=== PATIENT | male | born 1955 | race Caucasian/White ===

== ENCOUNTER 2022-03-20 06:06 | Inpatient (IN) ==
[~2022-03-20 06:06] MED LIST: Aspirin 81 MG TAB.CHEW PO ONE
[2022-03-20] MEDS ORDERED: NiCARdipine 2.5 MG/10 ML Syringe IVPB ONE (06:07)
[2022-03-20] MEDS ORDERED: DOBUTamine 1,000 MG/250 ML BAG ONE (06:07)
[2022-03-20] MEDS ORDERED: CARDIOPLEGIC SOLUTION NO.1 1,000 ML ONE (06:09)
[2022-03-20] MEDS ORDERED: *HR* Propofol 200 MG/20 ML VIAL IVP ONE (06:13)
[2022-03-20] MEDS ORDERED: *HR* Midazolam HCl 5 MG/5 ML VIAL IVP ONE (06:13)
[2022-03-20] MEDS ORDERED: *HR* FentaNYL (PF) 1,000 MCG/20 ML VIAL ONE (06:13)
[2022-03-20] MEDS ORDERED: CeFAZolin Syr 2,000MG/20 ML 2,000 MG/20 ML SYRINGE IVPB ONE (06:15)
[2022-03-20] MEDS ORDERED: *HR* Rocuronium Bromide 50 MG/5 ML VIAL ONE ×3 (06:15→11:51)
[2022-03-20] MEDS ORDERED: *HR* Magnesium Sulfate 1 GM/2 ML VIAL ONE (06:17)
[2022-03-20] MEDS ORDERED: Tranexamic Acid 1,000 MG/10 ML VIAL ONE (06:17)
[2022-03-20] MEDS ORDERED: Lidocaine 2% Syringe 100 MG/5 ML ONE (06:22)
[2022-03-20] MEDS ORDERED: Famotidine 20 MG/2 ML VIAL ONE (06:25)
[2022-03-20] MEDS: Ringers Solution, Lactated 1,000 ML IVC SCH (06:38)
[2022-03-20] MEDS: Chlorhexidine Rinse 15 ML MOUTHWASH MM SCH ×3 (06:38→19:53)
[2022-03-20] MEDS ORDERED: Papaverine 60 MG/2 ML VIAL IVP ONE (06:42)
[2022-03-20] MEDS ORDERED: Vancomycin 1,500 MG/265 ML IV.SOLN IVPB ONE (07:00)
[2022-03-20 07:45] LABS: ABG Base Excess -2 mEq/L (-2 to 3); ABG Chloride 103 mEq/L (98-107); ABG Glucose 234 mg/dL (60-95); ABG HCO3 25 mEq/L (21-27); ABG Ionized Calcium 1.24 mmol/L (1.15-1.35); ABG Oxygen Saturation 99 % (95-98); ABG PCO2 51 mmHg (35-45); ABG PO2 163 mmHg (85-104); ABG TCO2 26 mEq/L (20-26)
[2022-03-20] MEDS ORDERED: niCARdipine 20 MG/200 ML MLS IVC ONE (08:29)
[2022-03-20] MEDS ORDERED: Acetaminophen 325 MG TABLET PO PRN (08:48)
[2022-03-20] MEDS ORDERED: *HR* Dextrose 50 % in Water (Syg) 50 ML SYRINGE IVP PRN (08:48)
[2022-03-20] MEDS ORDERED: Potassium Chloride 40 MEQ/200 ML BAG IVPB PRN (08:48)
[2022-03-20] MEDS ORDERED: Insulin Regular, Human 100 UNIT/ML IV PRN (08:48)
[2022-03-20] MEDS ORDERED: Naloxone 0.4 MG/ML INJ IVP PRN (08:48)
[2022-03-20] MEDS ORDERED: *HR* FentaNYL (PF) 100 MCG/2 ML VIAL IVP PRN (08:48)
[2022-03-20] MEDS ORDERED: Calcium Gluconate 1gm/50mL 1 GM/50 ML BAG IVPB PRN (08:48)
[2022-03-20] MEDS ORDERED: Heparin 15,000 UNIT in 0.9 % Sodium Chloride 500 ML IV ONE (09:30)
[2022-03-20] MEDS ORDERED: Norepinephrine 4 MG in 0.9 % Sodium Chloride 250 ML IVC PRN (09:30)
[2022-03-20] MEDS ORDERED: Buckersberg's Blood Cardioplegia PF ONE (09:30)
[2022-03-20] MEDS ORDERED: del Nido Cardioplegia Solution PF ONE ×2 (09:30)
[2022-03-20 09:34] LABS: ABG Base Excess -2 mEq/L (-2 to 3); ABG Chloride 106 mEq/L (98-107); ABG Glucose 196 mg/dL (60-95); ABG HCO3 23 mEq/L (21-27); ABG Ionized Calcium 1.18 mmol/L (1.15-1.35); ABG Oxygen Saturation 100 % (95-98); ABG PCO2 40 mmHg (35-45); ABG PH 7.37 pH Units (7.32-7.45); ABG PO2 254 mmHg (85-104); ABG TCO2 24 mEq/L (20-26)
[2022-03-20] MEDS ORDERED: *HR* FentaNYL (PF) 250 MCG/5 ML VIAL ONE (09:51)
[2022-03-20 11:45] LABS: ABG Base Excess -5 mEq/L (-2 to 3); ABG Chloride 105 mEq/L (98-107); ABG Glucose 191 mg/dL (60-95); ABG HCO3 19 mEq/L (21-27); ABG Ionized Calcium 1.01 mmol/L (1.15-1.35); ABG Oxygen Saturation 100 % (95-98); ABG PCO2 31 mmHg (35-45); ABG PH 7.41 pH Units (7.32-7.45); ABG PO2 508 mmHg (85-104); ABG TCO2 20 mEq/L (20-26)
[2022-03-20] MEDS ORDERED: Protamine Sulfate 250 MG/25 ML VIAL IVP ONE (11:49)
[2022-03-20] MEDS ORDERED: Calcium Gluconate 1,000 MG/10 ML VIAL ONE ×3 (11:49→12:48)
[2022-03-20] MEDS ORDERED: Protamine Sulfate 50 MG/5 ML VIAL IVP ONE (11:49)
[2022-03-20] MEDS ORDERED: ceFAZolin 1,000 MG in 0.9 % Sodium Chloride 10 ML IVP ONE (12:13)
[2022-03-20] MEDS ORDERED: Furosemide 40 MG/4 ML VIAL ONE (12:13)
[2022-03-20 12:19] LABS: ABG Base Excess -5 mEq/L (-2 to 3); ABG Chloride 105 mEq/L (98-107); ABG Glucose 206 mg/dL (60-95); ABG HCO3 19 mEq/L (21-27); ABG Ionized Calcium 1.01 mmol/L (1.15-1.35); ABG Oxygen Saturation 100 % (95-98); ABG PCO2 30 mmHg (35-45); ABG PH 7.41 pH Units (7.32-7.45); ABG PO2 481 mmHg (85-104); ABG TCO2 20 mEq/L (20-26)
[2022-03-20 12:50] LABS: ABG Base Excess -6 mEq/L (-2 to 3); ABG Chloride 107 mEq/L (98-107); ABG Glucose 214 mg/dL (60-95); ABG HCO3 19 mEq/L (21-27); ABG Ionized Calcium 0.93 mmol/L (1.15-1.35); ABG Oxygen Saturation 100 % (95-98); ABG PCO2 35 mmHg (35-45); ABG PH 7.35 pH Units (7.32-7.45); ABG PO2 360 mmHg (85-104); ABG TCO2 20 mEq/L (20-26)
[2022-03-20] MEDS: niCARdipine 20 MG/200 ML MLS IVC SCH ×5 (13:36→22:12)
[2022-03-20] MEDS: DOBUTamine 1,000 MG/250 ML BAG IVC SCH (13:37)
[2022-03-20] MEDS: Norepinephrine 4 MG/254 ML IV.SOLN IVC SCH ×2 (13:37→16:20)
[2022-03-20 14:02] LABS: ABG Base Excess -2 mEq/L (-2 to 3); ABG HCO3 22 mEq/L (21-27); ABG Oxygen Saturation 96 % (95-98); ABG PCO2 33 mmHg (35-45); ABG PH 7.43 pH Units (7.32-7.45); ABG PO2 76 mmHg (85-104); ABG TCO2 23 mEq/L (20-26); Blood Gas VT 500 cc
[2022-03-20 14:10] LABS: Basophils % 0.2 %; Eosinophils % 0.1 %; Hematocrit 29.4 % (37.5-50.1); Hemoglobin 10.2 g/dL (12.9-16.9); Immature Granulocytes % 0.8 % (0-4); Lymphocytes # 0.7 K/mcL (0.6-4.6); Mean Corpuscular HGB Conc 34.7 g/dL (31.6-35.5); Mean Corpuscular Hemoglobin 30.5 pg (28.0-33.3); Mean Platelet Volume 10.4 fL (9.4-12.4); Monocytes # 0.8 K/mcL (0.0-1.3); Monocytes % 4.7 %; Neutrophils # 16.1 K/mcL (1.6-8.9); Platelet Count 153 K/mcL (140-400); Red Blood Count 3.34 M/mcL (4.19-5.50); Red Cell Distribution Width 11.9 % (11.5-14.5); Segmented Neutrophils % 90.2 %; White Blood Count 17.8 K/mcL (4.3-11.1)
[2022-03-20] MEDS: *HR* OxyCODONE/APAP 5/325 TABLET PO PRN (14:12)
[2022-03-20 14:23] LABS: Activated Partial Thrombo Time 35.1 Seconds (26.0-36.0); INR 1.3
[2022-03-20 14:28] LABS: BUN/Creatinine Ratio 14 (6-26); Blood Urea Nitrogen 15 mg/dL (8-23); Calcium 8.1 mg/dL (8.6-10.3); Carbon Dioxide 23 mEq/L (23-29); Chloride 106 mEq/L (98-107); Glucose 181 mg/dL (70-105); Magnesium 2.6 mg/dL (1.6-2.6); Osmolality,Calculated 291 (280-300); Potassium 3.8 mEq/L (3.5-5.1); Prothrombin Time 14.4 Seconds (9.4-12.1); Sodium 138 mEq/L (136-145); eGFR For African Americans > 60 (> 60); eGFR For Non-African Americans > 60 (> 60)
[2022-03-20] MEDS: Dexmedetomidine HCl 400 MCG/100 ML MLS IVC SCH (15:15)
[2022-03-20] MEDS: Pantoprazole 40 MG VIAL IVP SCH (15:38)
[2022-03-20] MEDS: Albumin Human 5% 12.5 GM/250 ML IV.SOLN IVPB PRN ×2 (16:12→16:29)
[2022-03-20] MEDS: CeFAZolin 2 GM/120 ML BAG IVPB SCH (16:26)
[2022-03-20] MEDS: Nitroprusside 0.9% NaCl 20 MG/100 ML VIAL IVC SCH (16:27)
[2022-03-20] MEDS ORDERED: *HR* Heparin 10,000 UNIT/10 ML VIAL IR ONE (16:58)
[2022-03-20] MEDS ORDERED: Albumin Human 25% 25 GM/100 ML IV.SOLN IVPB ONE (16:58)
[2022-03-20] MEDS ORDERED: Sodium Bicarbonate 50 MEQ/50 ML VIAL IVC ONE (16:58)
[2022-03-20] MEDS ORDERED: Lidocaine 2% Syringe 100 MG/5 ML IVP ONE (16:58)
[2022-03-20] MEDS ORDERED: Tranexamic Acid 1,000 MG/10 ML VIAL IR ONE (16:58)
[2022-03-20] MEDS ORDERED: Mannitol 25% vial 12.5 GM/50 ML VIAL IVPB ONE (16:58)
[2022-03-20] MEDS ORDERED: *HR* Phenylephrine 10 MG/ML VIAL IVC ONE (16:58)
[2022-03-20] MEDS ORDERED: *HR* Magnesium Sulfate 2 GM/50 ML PIGGYBACK IVPB ONE (16:58)
[2022-03-20] MEDS ORDERED: Aspirin 81 MG TAB.CHEW PO ONE (18:00)
[2022-03-20] MEDS ORDERED: Amiodarone Premix 150 MG/100 ML BAG IVPB ONE (19:12)
[2022-03-20] MEDS ORDERED: Amiodarone Premix 360 MG/200 ML BAG IVC ONE (19:12)
[2022-03-20 19:48] LABS: ABG Base Excess -3 mEq/L (-2 to 3); ABG HCO3 21 mEq/L (21-27); ABG Oxygen Saturation 91 % (95-98); ABG PCO2 36 mmHg (35-45); ABG PH 7.39 pH Units (7.32-7.45); ABG PO2 62 mmHg (85-104); ABG TCO2 22 mEq/L (20-26)
[2022-03-20] MEDS: *HR* FentaNYL (PF) 100 MCG/2 ML VIAL IVP PRN (23:00)
[2022-03-21] MEDS: CeFAZolin 2 GM/120 ML BAG IVPB SCH ×4 (00:15→23:48)
[2022-03-21] MEDS: niCARdipine 20 MG/200 ML MLS IVC SCH ×6 (00:35→23:51)
[2022-03-21] MEDS: *HR* OxyCODONE/APAP 5/325 TABLET PO PRN ×4 (02:05→22:25)
[2022-03-21] MEDS: Amiodarone Premix 360 MG/200 ML BAG IVC SCH ×2 (02:13→14:00)
[2022-03-21 03:45] LABS: Basophils % 0.1 %; Hematocrit 30.6 % (37.5-50.1); Hemoglobin 10.6 g/dL (12.9-16.9); Immature Granulocytes % 0.8 % (0-4); Lymphocytes # 0.6 K/mcL (0.6-4.6); Lymphocytes % 3.3 %; Mean Corpuscular HGB Conc 34.6 g/dL (31.6-35.5); Mean Corpuscular Hemoglobin 30.2 pg (28.0-33.3); Mean Corpuscular Volume 87.2 fL (83.0-100.0); Mean Platelet Volume 10.7 fL (9.4-12.4); Monocytes # 1.3 K/mcL (0.0-1.3); Monocytes % 7.9 %; Neutrophils # 14.6 K/mcL (1.6-8.9); Platelet Count 180 K/mcL (140-400); Red Blood Count 3.51 M/mcL (4.19-5.50); Red Cell Distribution Width 12.2 % (11.5-14.5); Segmented Neutrophils % 87.9 %; White Blood Count 16.6 K/mcL (4.3-11.1)
[2022-03-21 03:57] LABS: INR 1.1; Prothrombin Time 12.7 Seconds (9.4-12.1)
[2022-03-21 03:59] LABS: Activated Partial Thrombo Time 26.7 Seconds (26.0-36.0)
[2022-03-21 04:08] LABS: BUN/Creatinine Ratio 17 (6-26); Blood Urea Nitrogen 18 mg/dL (8-23); Carbon Dioxide 22 mEq/L (23-29); Chloride 106 mEq/L (98-107); Glucose 155 mg/dL (70-105); Magnesium 1.8 mg/dL (1.6-2.6); Osmolality,Calculated 289 (280-300); Potassium 3.5 mEq/L (3.5-5.1); Sodium 137 mEq/L (136-145); eGFR For African Americans > 60 (> 60); eGFR For Non-African Americans > 60 (> 60)
[2022-03-21] MEDS: *HR* FentaNYL (PF) 100 MCG/2 ML VIAL IVP PRN (04:44)
[2022-03-21] MEDS: Ringers Solution, Lactated 1,000 ML IVC SCH (06:39)
[2022-03-21] MEDS: *HR* Enoxaparin 40 MG/0.4 ML SYRINGE SQ SCH (06:39)
[2022-03-21] MEDS: DOBUTamine 1,000 MG/250 ML BAG IVC SCH (07:37)
[2022-03-21] MEDS: Chlorhexidine Rinse 15 ML MOUTHWASH MM SCH ×3 (07:37→20:17)
[2022-03-21] MEDS: Aspirin Enteric Coated 81 MG Tablet PO SCH (07:57)
[2022-03-21] MEDS: Bumetanide 1 MG/4 ML VIAL IVP SCH ×2 (08:00→16:29)
[2022-03-21] MEDS: Ketorolac 30 MG/ML VIAL IVP SCH ×3 (08:00→23:48)
[2022-03-21] MEDS: Pantoprazole 40 MG VIAL IVP SCH (08:01)
[2022-03-21 08:26] LABS: ABG Base Excess -3 mEq/L (-2 to 3); ABG Chloride 103 mEq/L (98-107); ABG Glucose 163 mg/dL (60-95); ABG HCO3 23 mEq/L (21-27); ABG Ionized Calcium 1.14 mmol/L (1.15-1.35); ABG PCO2 45 mmHg (35-45); ABG PH 7.33 pH Units (7.32-7.45); ABG PO2 > 630 mmHg (85-104); ABG TCO2 25 mEq/L (20-26)
[2022-03-21 08:29] LABS: ABG Base Excess -3 mEq/L (-2 to 3); ABG Chloride 103 mEq/L (98-107); ABG Glucose 172 mg/dL (60-95); ABG HCO3 24 mEq/L (21-27); ABG Ionized Calcium 1.17 mmol/L (1.15-1.35); ABG PCO2 49 mmHg (35-45); ABG PH 7.29 pH Units (7.32-7.45); ABG PO2 > 630 mmHg (85-104); ABG TCO2 25 mEq/L (20-26)
[2022-03-21 08:30] LABS: ABG Base Excess -3 mEq/L (-2 to 3); ABG Chloride 104 mEq/L (98-107); ABG Glucose 176 mg/dL (60-95); ABG HCO3 22 mEq/L (21-27); ABG Ionized Calcium 1.08 mmol/L (1.15-1.35); ABG PCO2 39 mmHg (35-45); ABG PH 7.36 pH Units (7.32-7.45); ABG PO2 > 630 mmHg (85-104); ABG TCO2 24 mEq/L (20-26)
[2022-03-21] MEDS: Insulin LISPRO 300 UNITS/3 ML VIAL SUBQ SCH ×2 (11:04→16:29)
[2022-03-21 11:05] LABS: ABG Base Excess -2 mEq/L (-2 to 3); ABG HCO3 21 mEq/L (21-27); ABG Oxygen Saturation 92 % (95-98); ABG PCO2 29 mmHg (35-45); ABG PH 7.47 pH Units (7.32-7.45); ABG PO2 58 mmHg (85-104); ABG TCO2 22 mEq/L (20-26)
[2022-03-21] MEDS: Dexmedetomidine HCl 400 MCG/100 ML MLS IVC SCH (13:20)
[2022-03-21] MEDS: Norepinephrine 4 MG/254 ML IV.SOLN IVC SCH ×2 (13:20→23:51)
[2022-03-21] MEDS: Nitroprusside 0.9% NaCl 20 MG/100 ML VIAL IVC SCH (16:09)
[2022-03-21] MEDS ORDERED: Insulin LISPRO 300 UNITS/3 ML VIAL SUBQ SCH (21:00)
[2022-03-22] MEDS: Amiodarone Premix 360 MG/200 ML BAG IVC SCH (00:18)
[2022-03-22] MEDS: niCARdipine 20 MG/200 ML MLS IVC SCH ×5 (04:39→16:18)
[2022-03-22] MEDS: Ringers Solution, Lactated 1,000 ML IVC SCH ×2 (04:40→16:19)
[2022-03-22 05:22] LABS: Basophils % 0.1 %; Hematocrit 27.8 % (37.5-50.1); Hemoglobin 9.3 g/dL (12.9-16.9); Immature Granulocytes % 0.4 % (0-4); Lymphocytes # 1.1 K/mcL (0.6-4.6); Lymphocytes % 6.7 %; Mean Corpuscular HGB Conc 33.5 g/dL (31.6-35.5); Mean Corpuscular Volume 89.7 fL (83.0-100.0); Mean Platelet Volume 11.9 fL (9.4-12.4); Monocytes # 1.3 K/mcL (0.0-1.3); Monocytes % 8.1 %; Neutrophils # 13.6 K/mcL (1.6-8.9); Platelet Count 141 K/mcL (140-400); Red Cell Distribution Width 12.8 % (11.5-14.5); Segmented Neutrophils % 84.7 %; White Blood Count 16.1 K/mcL (4.3-11.1)
[2022-03-22 05:44] LABS: BUN/Creatinine Ratio 21 (6-26); Blood Urea Nitrogen 25 mg/dL (8-23); Calcium 7.9 mg/dL (8.6-10.3); Carbon Dioxide 21 mEq/L (23-29); Chloride 100 mEq/L (98-107); Glucose 242 mg/dL (70-105); Magnesium 2.1 mg/dL (1.6-2.6); Osmolality,Calculated 288 (280-300); Sodium 133 mEq/L (136-145); eGFR For African Americans > 60 (> 60); eGFR For Non-African Americans > 60 (> 60)
[2022-03-22] MEDS: *HR* Enoxaparin 40 MG/0.4 ML SYRINGE SQ SCH (06:06)
[2022-03-22] MEDS: *HR* OxyCODONE/APAP 5/325 TABLET PO PRN ×2 (06:12→17:43)
[2022-03-22] MEDS: Dexmedetomidine HCl 400 MCG/100 ML MLS IVC SCH ×2 (07:00→16:19)
[2022-03-22] MEDS ORDERED: Perflutren Lipid Microsphere 1.3 ML in 0.9 % Sodium Chloride 8.7 ML IVP PRN (07:40)
[2022-03-22] MEDS: Bumetanide 1 MG/4 ML VIAL IVP SCH ×2 (07:43→17:44)
[2022-03-22] MEDS: CeFAZolin 2 GM/120 ML BAG IVPB SCH (07:43)
[2022-03-22] MEDS: Pantoprazole 40 MG VIAL IVP SCH (07:44)
[2022-03-22] MEDS: Ketorolac 30 MG/ML VIAL IVP SCH (07:44)
[2022-03-22] MEDS: Chlorhexidine Rinse 15 ML MOUTHWASH MM SCH ×2 (07:44→20:56)
[2022-03-22] MEDS: Aspirin Enteric Coated 81 MG Tablet PO SCH (07:44)
[2022-03-22] MEDS: Insulin LISPRO 300 UNITS/3 ML VIAL SUBQ SCH ×4 (07:45→20:55)
[2022-03-22] MEDS: DOBUTamine 1,000 MG/250 ML BAG IVC SCH ×2 (07:46→16:18)
[2022-03-22] MEDS ORDERED: lisinopriL 10 MG TABLET PO SCH (09:15)
[2022-03-22] MEDS: Norepinephrine 4 MG/254 ML IV.SOLN IVC SCH (14:50)
[2022-03-22] MEDS: Nitroprusside 0.9% NaCl 20 MG/100 ML VIAL IVC SCH (14:50)
[2022-03-22] MEDS ORDERED: Calcium Gluconate 1gm/50mL 1 GM/50 ML BAG IVPB PRN (16:07)
[2022-03-22] MEDS ORDERED: Norepinephrine 4 MG/254 ML IV.SOLN IVC SCH (16:07)
[2022-03-22] MEDS ORDERED: Naloxone 0.4 MG/ML INJ IVP PRN (16:07)
[2022-03-22] MEDS ORDERED: Potassium Chloride 40 MEQ/200 ML BAG IVPB PRN (16:07)
[2022-03-22] MEDS ORDERED: Albumin Human 5% 12.5 GM/250 ML IV.SOLN IVPB PRN (16:07)
[2022-03-22] MEDS ORDERED: *HR* Dextrose 50 % in Water (Syg) 50 ML SYRINGE IVP PRN (16:07)
[2022-03-22] MEDS ORDERED: Nitroprusside 0.9% NaCl 20 MG/100 ML VIAL IVC SCH (16:07)
[2022-03-22] MEDS ORDERED: Norepinephrine 4 MG in 0.9 % Sodium Chloride 250 ML IVC PRN (16:07)
[2022-03-23 04:06] LABS: Basophils % 0.1 %; Hematocrit 28.2 % (37.5-50.1); Hemoglobin 9.3 g/dL (12.9-16.9); Immature Granulocytes % 0.7 % (0-4); Lymphocytes # 0.9 K/mcL (0.6-4.6); Lymphocytes % 5.7 %; Mean Corpuscular Hemoglobin 29.6 pg (28.0-33.3); Mean Corpuscular Volume 89.8 fL (83.0-100.0); Monocytes # 0.9 K/mcL (0.0-1.3); Monocytes % 6.3 %; Platelet Count 142 K/mcL (140-400); Red Blood Count 3.14 M/mcL (4.19-5.50); Red Cell Distribution Width 12.8 % (11.5-14.5); Segmented Neutrophils % 87.2 %; White Blood Count 14.9 K/mcL (4.3-11.1)
[2022-03-23 04:31] LABS: BUN/Creatinine Ratio 25 (6-26); Blood Urea Nitrogen 26 mg/dL (8-23); Calcium 8.1 mg/dL (8.6-10.3); Carbon Dioxide 26 mEq/L (23-29); Chloride 99 mEq/L (98-107); Glucose 193 mg/dL (70-105); Magnesium 1.9 mg/dL (1.6-2.6); Osmolality,Calculated 286 (280-300); Potassium 3.3 mEq/L (3.5-5.1); Sodium 133 mEq/L (136-145); eGFR For African Americans > 60 (> 60); eGFR For Non-African Americans > 60 (> 60)
[2022-03-23] MEDS: *HR* Enoxaparin 40 MG/0.4 ML SYRINGE SQ SCH (05:54)
[2022-03-23] MEDS: Bumetanide 1 MG/4 ML VIAL IVP SCH ×2 (08:25→16:52)
[2022-03-23] MEDS: Pantoprazole 40 MG VIAL IVP SCH (08:25)
[2022-03-23] MEDS: Insulin LISPRO 300 UNITS/3 ML VIAL SUBQ SCH ×4 (08:25→21:09)
[2022-03-23] MEDS: Chlorhexidine Rinse 15 ML MOUTHWASH MM SCH ×2 (08:26→21:09)
[2022-03-23] MEDS: Magnesium Oxide 400 MG TABLET PO SCH (08:27)
[2022-03-23] MEDS: lisinopriL 10 MG TABLET PO SCH (08:27)
[2022-03-23] MEDS: Aspirin Enteric Coated 81 MG Tablet PO SCH (08:28)
[2022-03-23] MEDS: Dexmedetomidine HCl 400 MCG/100 ML MLS IVC SCH (11:34)
[2022-03-23] MEDS: niCARdipine 20 MG/200 ML MLS IVC SCH ×4 (11:35→21:00)
[2022-03-23] MEDS: DOBUTamine 1,000 MG/250 ML BAG IVC SCH (11:35)
[2022-03-23] MEDS: Ringers Solution, Lactated 1,000 ML IVC SCH (11:35)
[2022-03-23] MEDS: amLODIPine 5 MG TABLET PO SCH (11:42)
[2022-03-23] MEDS: Acetaminophen 325 MG TABLET PO PRN (21:08)
[2022-03-23] MEDS: Insulin DETEMIR 100 UNIT/ML X5UNITS SUBQ SCH (21:10)
[2022-03-24] MEDS: niCARdipine 20 MG/200 ML MLS IVC SCH ×3 (00:18→07:54)
[2022-03-24 04:22] LABS: Basophils % 0.1 %; Hematocrit 28.8 % (37.5-50.1); Hemoglobin 9.6 g/dL (12.9-16.9); Immature Granulocytes % 0.7 % (0-4); Mean Corpuscular HGB Conc 33.3 g/dL (31.6-35.5); Mean Corpuscular Hemoglobin 30.3 pg (28.0-33.3); Mean Corpuscular Volume 90.9 fL (83.0-100.0); Monocytes % 10.1 %; Neutrophils # 8.1 K/mcL (1.6-8.9); Platelet Count 165 K/mcL (140-400); Red Blood Count 3.17 M/mcL (4.19-5.50); Red Cell Distribution Width 12.5 % (11.5-14.5); Segmented Neutrophils % 79.1 %; White Blood Count 10.2 K/mcL (4.3-11.1)
[2022-03-24 04:27] LABS: VBG Ionized Calcium 1.09 mmol/L (1.15-1.35)
[2022-03-24 04:34] LABS: BUN/Creatinine Ratio 21 (6-26); Blood Urea Nitrogen 24 mg/dL (8-23); Calcium 8.2 mg/dL (8.6-10.3); Carbon Dioxide 29 mEq/L (23-29); Chloride 98 mEq/L (98-107); Glucose 116 mg/dL (70-105); Magnesium 1.9 mg/dL (1.6-2.6); Osmolality,Calculated 285 (280-300); Potassium 2.8 mEq/L (3.5-5.1); Sodium 135 mEq/L (136-145); eGFR For African Americans > 60 (> 60); eGFR For Non-African Americans > 60 (> 60)
[2022-03-24] MEDS: *HR* Enoxaparin 40 MG/0.4 ML SYRINGE SQ SCH (05:26)
[2022-03-24] MEDS ORDERED: Calcium Gluconate 1gm/50mL 1 GM/50 ML BAG IVPB ONE (07:26)
[2022-03-24] MEDS: Dexmedetomidine HCl 400 MCG/100 ML MLS IVC SCH (07:54)
[2022-03-24] MEDS: amLODIPine 5 MG TABLET PO SCH (09:14)
[2022-03-24] MEDS: Aspirin Enteric Coated 81 MG Tablet PO SCH (09:14)
[2022-03-24] MEDS: lisinopriL 10 MG TABLET PO SCH (09:15)
[2022-03-24] MEDS: Magnesium Oxide 400 MG TABLET PO SCH (09:15)
[2022-03-24] MEDS: Pantoprazole 40 MG VIAL IVP SCH (09:15)
[2022-03-24] MEDS: Bumetanide 1 MG/4 ML VIAL IVP SCH ×2 (09:15→16:48)
[2022-03-24] MEDS: Chlorhexidine Rinse 15 ML MOUTHWASH MM SCH ×2 (09:16→20:56)
[2022-03-24] MEDS: Insulin LISPRO 300 UNITS/3 ML VIAL SUBQ SCH ×4 (09:17→20:56)
[2022-03-24] MEDS: *HR* OxyCODONE/APAP 5/325 TABLET PO PRN (14:26)
[2022-03-24] MEDS: Ringers Solution, Lactated 1,000 ML IVC SCH (15:20)
[2022-03-24] MEDS: DOBUTamine 1,000 MG/250 ML BAG IVC SCH (15:20)
[2022-03-24] MEDS: Insulin DETEMIR 100 UNIT/ML X5UNITS SUBQ SCH (20:55)
[2022-03-24] MEDS: Acetaminophen 325 MG TABLET PO PRN (20:56)
[2022-03-25 02:36] LABS: Basophils % 0.1 %; Eosinophils % 0.3 %; Hematocrit 29.1 % (37.5-50.1); Hemoglobin 9.8 g/dL (12.9-16.9); Immature Granulocytes % 0.7 % (0-4); Lymphocytes # 1.4 K/mcL (0.6-4.6); Lymphocytes % 17.6 %; Mean Corpuscular HGB Conc 33.7 g/dL (31.6-35.5); Mean Corpuscular Hemoglobin 30.2 pg (28.0-33.3); Mean Corpuscular Volume 89.8 fL (83.0-100.0); Mean Platelet Volume 11.3 fL (9.4-12.4); Monocytes # 1.1 K/mcL (0.0-1.3); Monocytes % 14.2 %; Neutrophils # 5.2 K/mcL (1.6-8.9); Platelet Count 189 K/mcL (140-400); Red Blood Count 3.24 M/mcL (4.19-5.50); Red Cell Distribution Width 12.5 % (11.5-14.5); Segmented Neutrophils % 67.1 %; White Blood Count 7.7 K/mcL (4.3-11.1)
[2022-03-25 02:49] LABS: VBG Ionized Calcium 1.08 mmol/L (1.15-1.35)
[2022-03-25 02:55] LABS: BUN/Creatinine Ratio 21 (6-26); Blood Urea Nitrogen 26 mg/dL (8-23); Calcium 8.2 mg/dL (8.6-10.3); Carbon Dioxide 28 mEq/L (23-29); Chloride 98 mEq/L (98-107); Glucose 106 mg/dL (70-105); Magnesium 2.1 mg/dL (1.6-2.6); Osmolality,Calculated 279 (280-300); Potassium 3.3 mEq/L (3.5-5.1); Sodium 132 mEq/L (136-145); eGFR For African Americans > 60 (> 60); eGFR For Non-African Americans > 60 (> 60)
[2022-03-25] MEDS: *HR* Enoxaparin 40 MG/0.4 ML SYRINGE SQ SCH (06:56)
[2022-03-25] MEDS ORDERED: Calcium Gluconate 1gm/50mL 1 GM/50 ML BAG IVPB ONE (07:21)
[2022-03-25] MEDS: Dexmedetomidine HCl 400 MCG/100 ML MLS IVC SCH (07:48)
[2022-03-25] MEDS: Chlorhexidine Rinse 15 ML MOUTHWASH MM SCH ×2 (08:53→21:15)
[2022-03-25] MEDS: Magnesium Oxide 400 MG TABLET PO SCH (08:54)
[2022-03-25] MEDS: amLODIPine 5 MG TABLET PO SCH (08:54)
[2022-03-25] MEDS: Aspirin Enteric Coated 81 MG Tablet PO SCH (08:54)
[2022-03-25] MEDS: Pantoprazole 40 MG VIAL IVP SCH (08:55)
[2022-03-25] MEDS: Insulin LISPRO 300 UNITS/3 ML VIAL SUBQ SCH ×4 (08:55→21:14)
[2022-03-25] MEDS: Bumetanide 1 MG/4 ML VIAL IVP SCH ×2 (08:55→18:14)
[2022-03-25] MEDS: DOBUTamine 1,000 MG/250 ML BAG IVC SCH (12:23)
[2022-03-25] MEDS: Ringers Solution, Lactated 1,000 ML IVC SCH (12:23)
[2022-03-25 17:06] LABS: Adenovirus F 40/41 PCR Not detected (Not detect); Astrovirus PCR Not detected (Not detect); C.difficile Toxin A/B Gene PCR Not detected (Not detect); Campylobacter by PCR Not detected (Not detect); Cryptosporidium by PCR Not detected (Not detect); Cyclospora cayetanensis PCR Not detected (Not detect); Entamoeba histolytica PCR Not detected (Not detect); Enteroaggregative E.coli(EAEC) Not detected (Not detect); Enteropathogenic E.coli(EPEC) Not detected (Not detect); Enterotoxigenic E.coli (ETEC) Not detected (Not detect); Giardia lamblia PCR Not detected (Not detect); Norovirus GI/GII PCR Not detected (Not detect); Plesiomonas shigelloides PCR Not detected (Not detect); Rotavirus A PCR Not detected (Not detect); Salmonella PCR Not detected (Not detect); Sapovirus PCR Not detected (Not detect); Shig/EnteroinvasiveE coli EIEC Not detected (Not detect); Shigalike tox-prod E coli STEC Not detected (Not detect); Vibrio PCR Not detected (Not detect); Vibrio cholerae PCR Not detected (Not detect); Yersinia enterocolitica PCR Not detected (Not detect)
[2022-03-25] MEDS: Insulin DETEMIR 100 UNIT/ML X5UNITS SUBQ SCH (21:15)
[2022-03-26 02:07] LABS: Basophils % 0.2 %; Eosinophils # 0.1 K/mcL (0.0-0.6); Eosinophils % 0.8 %; Hematocrit 30.4 % (37.5-50.1); Hemoglobin 10.1 g/dL (12.9-16.9); Lymphocytes # 1.8 K/mcL (0.6-4.6); Lymphocytes % 19.6 %; Mean Corpuscular HGB Conc 33.2 g/dL (31.6-35.5); Mean Corpuscular Hemoglobin 29.8 pg (28.0-33.3); Mean Corpuscular Volume 89.7 fL (83.0-100.0); Monocytes # 1.2 K/mcL (0.0-1.3); Monocytes % 12.4 %; Neutrophils # 6.2 K/mcL (1.6-8.9); Platelet Count 239 K/mcL (140-400); Red Blood Count 3.39 M/mcL (4.19-5.50); Red Cell Distribution Width 12.7 % (11.5-14.5); White Blood Count 9.3 K/mcL (4.3-11.1)
[2022-03-26 02:26] LABS: BUN/Creatinine Ratio 19 (6-26); Blood Urea Nitrogen 24 mg/dL (8-23); Calcium 8.6 mg/dL (8.6-10.3); Carbon Dioxide 26 mEq/L (23-29); Chloride 102 mEq/L (98-107); Glucose 92 mg/dL (70-105); Magnesium 1.8 mg/dL (1.6-2.6); Osmolality,Calculated 284 (280-300); Potassium 3.7 mEq/L (3.5-5.1); Sodium 135 mEq/L (136-145); eGFR For African Americans > 60 (> 60); eGFR For Non-African Americans 57 (> 60)
[2022-03-26] MEDS: *HR* Enoxaparin 40 MG/0.4 ML SYRINGE SQ SCH (06:08)
[2022-03-26] MEDS: Insulin LISPRO 300 UNITS/3 ML VIAL SUBQ SCH ×4 (08:22→19:56)
[2022-03-26] MEDS: Chlorhexidine Rinse 15 ML MOUTHWASH MM SCH ×2 (08:23→19:56)
[2022-03-26] MEDS: Magnesium Oxide 400 MG TABLET PO SCH (08:25)
[2022-03-26] MEDS: Bumetanide 1 MG/4 ML VIAL IVP SCH ×2 (08:25→16:11)
[2022-03-26] MEDS: Aspirin Enteric Coated 81 MG Tablet PO SCH (08:25)
[2022-03-26] MEDS: Pantoprazole 40 MG VIAL IVP SCH (08:26)
[2022-03-26] MEDS: Insulin DETEMIR 100 UNIT/ML X5UNITS SUBQ SCH (19:56)
[2022-03-26] MEDS ORDERED: Metoprolol XL (24 HR) Succ 25 MG TAB.ER.24H PO SCH (21:00)
[2022-03-27] MEDS: *HR* Enoxaparin 40 MG/0.4 ML SYRINGE SQ SCH (06:02)
[2022-03-27 06:16] LABS: Basophils % 0.1 %; Eosinophils # 0.1 K/mcL (0.0-0.6); Eosinophils % 0.8 %; Hematocrit 28.9 % (37.5-50.1); Hemoglobin 9.4 g/dL (12.9-16.9); Immature Granulocytes % 1.1 % (0-4); Lymphocytes # 1.5 K/mcL (0.6-4.6); Lymphocytes % 14.5 %; Mean Corpuscular HGB Conc 32.5 g/dL (31.6-35.5); Mean Corpuscular Hemoglobin 29.5 pg (28.0-33.3); Mean Corpuscular Volume 90.6 fL (83.0-100.0); Mean Platelet Volume 10.6 fL (9.4-12.4); Monocytes # 1.1 K/mcL (0.0-1.3); Monocytes % 10.6 %; Neutrophils # 7.4 K/mcL (1.6-8.9); Platelet Count 227 K/mcL (140-400); Red Blood Count 3.19 M/mcL (4.19-5.50); Segmented Neutrophils % 72.9 %; White Blood Count 10.1 K/mcL (4.3-11.1)
[2022-03-27 06:17] LABS: VBG Ionized Calcium 1.11 mmol/L (1.15-1.35)
[2022-03-27 07:13] LABS: BUN/Creatinine Ratio 19 (6-26); Blood Urea Nitrogen 21 mg/dL (8-23); Calcium 8.3 mg/dL (8.6-10.3); Carbon Dioxide 23 mEq/L (23-29); Chloride 103 mEq/L (98-107); Glucose 136 mg/dL (70-105); Magnesium 1.7 mg/dL (1.6-2.6); Osmolality,Calculated 285 (280-300); Sodium 135 mEq/L (136-145); eGFR For African Americans > 60 (> 60); eGFR For Non-African Americans > 60 (> 60)
[2022-03-27] MEDS ORDERED: Calcium Gluconate 1gm/50mL 1 GM/50 ML BAG IVPB ONE (07:19)
[2022-03-27] MEDS: Insulin LISPRO 300 UNITS/3 ML VIAL SUBQ SCH ×3 (08:25→16:21)
[2022-03-27] MEDS: Chlorhexidine Rinse 15 ML MOUTHWASH MM SCH (08:32)
[2022-03-27] MEDS: Pantoprazole 40 MG VIAL IVP SCH (08:32)
[2022-03-27] MEDS: Aspirin Enteric Coated 81 MG Tablet PO SCH (08:32)
[2022-03-27] MEDS: Bumetanide 1 MG/4 ML VIAL IVP SCH ×2 (08:33→16:21)
[2022-03-27] MEDS ORDERED: Insulin DETEMIR 100 UNIT/ML X5UNITS SUBQ SCH ×2 (09:00→21:00)
[2022-03-27] MEDS ORDERED: Magnesium Oxide 400 MG TABLET PO SCH (09:00)
[2022-03-27 16:14] VITALS: BP 128/65; PULSE 109; TEMP 98.2; O2SAT 100
== END 2022-03-27 20:00 | disposition home or self-care (01) | DRG 219 ==
LOC: SAMDAY 06:06 → ICNU 13:27 → SUATTDRO 13:27 → 2NNU 03-22 17:39
PROVIDERS: ADMIT Thoracic Surgery (Cardiothoracic Vascular Surgery); ATTEND General Practice